=== PATIENT | male | born 1985 | race Caucasian/White ===

== ENCOUNTER 2018-07-06 12:08 | Emergency (ER) | payer OTHER, SELFPAY | END 2018-07-06 12:42 | disposition home or self-care (01) | LOC: NAV ERS 12:08 | DX: H66.91 Otitis media, unspecified, right ear (principal); I10 Essential (primary) hypertension; F17.220 Nicotine dependence, chewing tobacco, uncomplicated | CPT/HCPCS: 99282 ==